=== PATIENT | male | born 1965 | race Caucasian/White ===

== ENCOUNTER → 2018-03-15 | Outpatient (CLI) | payer BC ==
[~2018-03-15] MED LIST: ACET325; CALCA500CH; CHOL10002; MULVITMIND; Percocet 5-3251 EACH PO; Protonix40 MG PO; Zofran Odt4 MG SL
[2018-03-15 09:52] LABS: BASOPHILS PERCENT AUTO 1 % (0-2); EOSINOPHILS ABSOLUTE AUTO 0.24 K/mm3 (0.00-0.68); EOSINOPHILS PERCENT AUTO 2 % (0-6); Hematocrit 47.6 % (37.0-53.0); Hemoglobin 16.5 g/dL (13.5-17.5); IMMATURE GRAN ABSOLUTE AUTO 0.05 K/mm3 (0.00-0.10); IMMATURE GRAN PERCENT AUTO 0 % (0-1); LYMPHOCYTES ABSOLUTE AUTO 3.62 K/mm3 (0.84-5.20); LYMPHOCYTES PERCENT AUTO 30 % (21-46); MONOCYTES ABSOLUTE AUTO 1.01 K/mm3 (0.16-1.47); MONOCYTES PERCENT AUTO 8 % (4-13); Mean Corpuscular HGB 30.7 pg (26.0-34.0); Mean Corpuscular HGB Conc 34.7 g/dL (31.5-36.5); Mean Corpuscular Volume 89 fL (80-100); Mean Platelet Volume 8.9 fL (9.1-12.4); NEUTROPHILS ABSOLUTE AUTO 7.16 K/mm3 (1.96-9.15); NEUTROPHILS PERCENT AUTO 59 % (41-73); Platelet Count 290 K/mm3 (150-400); RDW Coefficient Variation 13.5 % (11.7-14.2); RDW Standard Deviation 43.9 fL (35.1-46.3); Red Blood Cell Count 5.37 M/mm3 (4.30-5.90); White Blood Cell Count 12.18 K/mm3 (4.00-11.30)
[2018-03-15 10:13] LABS: Alanine Aminotransfer (ALT/SGP 20 U/L (12-78); Albumin, Blood 3.7 g/dL (3.4-5.0); Albumin/Globulin Ratio 1.1 (0.8-1.8); Alk Phos 92 U/L (40-126); Anion Gap 8 mmol/L (6-16); Aspartate Aminotrans (AST/SGOT 15 U/L (12-37); Bilirubin, Total 0.3 mg/dL (0.1-1.0); Blood Urea Nitrogen 12 mg/dL (8-24); Bun/Creatinine Ratio 14.5 (12.0-20.0); CO2, Blood 29 mmol/L (21-32); Calcium, Blood 8.8 mg/dL (8.5-10.1); Chloride, Blood 100 mmol/L (98-108); Creatinine, Blood 0.83 mg/dL (0.60-1.20); Globulin, Blood 3.5 g/dL (2.2-4.0); Glomerular Filtration Rate >60 (60-); Glucose, Blood 93 mg/dL (70-99); Potassium, Blood 3.9 mmol/L (3.5-5.5); Sodium, Blood 137 mmol/L (136-145); Total Protein, Blood 7.2 g/dL (6.4-8.2)
== END | disposition home or self-care (01) ==
LOC: LAB EV 09:48 → LAB SHORT 09:48
PROVIDERS: Physician Assistant
DX: R10.9 Unspecified abdominal pain (principal)
CPT/HCPCS: 80053; 83690; 85025; 87015; 87045; 87046; 87205; 87899

== ENCOUNTER 2018-07-11 13:06 | Emergency (ER) | payer BC, OTHER ==
[~2018-07-11] VITALS: Ht 167.6 cm; Wt 65.8 kg
[~2018-07-11 13:06] MED LIST changes: -PROM25 PR; -Zofran8 MG PO
[2018-07-11 16:11] LABS: BASOPHILS ABSOLUTE AUTO 0.07 K/mm3 (0.00-0.23); BASOPHILS PERCENT AUTO 0 % (0-2); EOSINOPHILS ABSOLUTE AUTO 0.11 K/mm3 (0.00-0.68); EOSINOPHILS PERCENT AUTO 0 % (0-6); Hematocrit 48.1 % (37.0-53.0); Hemoglobin 16.7 g/dL (13.5-17.5); IMMATURE GRAN ABSOLUTE AUTO 0.14 K/mm3 (0.00-0.10); IMMATURE GRAN PERCENT AUTO 1 % (0-1); LYMPHOCYTES ABSOLUTE AUTO 2.26 K/mm3 (0.84-5.20); LYMPHOCYTES PERCENT AUTO 9 % (21-46); MONOCYTES ABSOLUTE AUTO 2.08 K/mm3 (0.16-1.47); MONOCYTES PERCENT AUTO 8 % (4-13); Mean Corpuscular HGB 30.6 pg (26.0-34.0); Mean Corpuscular HGB Conc 34.7 g/dL (31.5-36.5); Mean Corpuscular Volume 88 fL (80-100); Mean Platelet Volume 9.3 fL (9.1-12.4); NEUTROPHILS ABSOLUTE AUTO 21.02 K/mm3 (1.96-9.15); NEUTROPHILS PERCENT AUTO 82 % (41-73); Platelet Count 259 K/mm3 (150-400); RDW Coefficient Variation 13.2 % (11.7-14.2); RDW Standard Deviation 42.5 fL (35.1-46.3); Red Blood Cell Count 5.45 M/mm3 (4.30-5.90); White Blood Cell Count 25.68 K/mm3 (4.00-11.30)
[2018-07-11 16:43] LABS: Alanine Aminotransfer (ALT/SGP 19 U/L (12-78); Albumin/Globulin Ratio 1.2 (0.8-1.8); Alk Phos 91 U/L (50-136); Anion Gap 4 mmol/L (6-16); Aspartate Aminotrans (AST/SGOT 11 U/L (12-37); Bilirubin, Total 0.5 mg/dL (0.1-1.0); Blood Urea Nitrogen 19 mg/dL (8-24); Bun/Creatinine Ratio 22.3 (12.0-20.0); CO2, Blood 34 mmol/L (21-32); Calcium, Blood 9.2 mg/dL (8.5-10.1); Chloride, Blood 99 mmol/L (98-108); Creatinine, Blood 0.85 mg/dL (0.60-1.20); Globulin, Blood 3.2 g/dL (2.2-4.0); Glomerular Filtration Rate >60 (60-); Glucose, Blood 106 mg/dL (70-99); Potassium, Blood 4.2 mmol/L (3.5-5.5); Sodium, Blood 137 mmol/L (136-145); Total Protein, Blood 7.2 g/dL (6.4-8.2)
[2018-07-11] MEDS ORDERED: PROM25 PR (19:52)
[2018-07-11] MEDS ORDERED: Zofran8 MG PO (19:52)
== END 2018-07-11 20:24 | disposition home or self-care (01) ==
LOC: ER 13:06
PROVIDERS: Emergency Medicine
DX: K52.9 Noninfective gastroenteritis and colitis, unspecified (principal); R74.8 Abnormal levels of other serum enzymes; F17.200 Nicotine dependence, unspecified, uncomplicated
CPT/HCPCS: 74177; 80053; 83690; 85025; 93005; 93010; 96361-59; 96374-59; 96375-59; 99284-25; A9270-GY; J0780; J1170; J2250; J2405; J7120; Q9967

== ENCOUNTER → 2018-07-11 | Outpatient (CLI) | payer BC ==
[~2018-07-11] MED LIST changes: +PROM25 PR; +Zofran8 MG PO
[2018-07-11 12:30] LABS: BASOPHILS ABSOLUTE AUTO 0.07 K/mm3 (0.00-0.23); BASOPHILS PERCENT AUTO 0 % (0-2); EOSINOPHILS ABSOLUTE AUTO 0.15 K/mm3 (0.00-0.68); EOSINOPHILS PERCENT AUTO 1 % (0-6); Hematocrit 47.3 % (37.0-53.0); Hemoglobin 17.1 g/dL (13.5-17.5); IMMATURE GRAN ABSOLUTE AUTO 0.08 K/mm3 (0.00-0.10); IMMATURE GRAN PERCENT AUTO 0 % (0-1); LYMPHOCYTES ABSOLUTE AUTO 2.64 K/mm3 (0.84-5.20); LYMPHOCYTES PERCENT AUTO 14 % (21-46); MONOCYTES ABSOLUTE AUTO 1.39 K/mm3 (0.16-1.47); MONOCYTES PERCENT AUTO 7 % (4-13); Mean Corpuscular HGB 30.9 pg (26.0-34.0); Mean Corpuscular HGB Conc 36.2 g/dL (31.5-36.5); Mean Corpuscular Volume 86 fL (80-100); Mean Platelet Volume 9.1 fL (9.1-12.4); NEUTROPHILS ABSOLUTE AUTO 14.68 K/mm3 (1.96-9.15); NEUTROPHILS PERCENT AUTO 77 % (41-73); Platelet Count 283 K/mm3 (150-400); RDW Standard Deviation 40.3 fL (35.1-46.3); Red Blood Cell Count 5.53 M/mm3 (4.30-5.90); White Blood Cell Count 19.01 K/mm3 (4.00-11.30)
[2018-07-11 12:42] LABS: Alanine Aminotransfer (ALT/SGP 21 U/L (12-78); Albumin, Blood 4.1 g/dL (3.4-5.0); Albumin/Globulin Ratio 1.1 (0.8-1.8); Alk Phos 96 U/L (40-126); Anion Gap 10 mmol/L (6-16); Aspartate Aminotrans (AST/SGOT 14 U/L (12-37); Bilirubin, Total 0.5 mg/dL (0.1-1.0); Blood Urea Nitrogen 18 mg/dL (8-24); Bun/Creatinine Ratio 22.2 (12.0-20.0); CO2, Blood 29 mmol/L (21-32); Calcium, Blood 9.6 mg/dL (8.5-10.1); Chloride, Blood 99 mmol/L (98-108); Creatinine, Blood 0.81 mg/dL (0.60-1.20); Globulin, Blood 3.6 g/dL (2.2-4.0); Glomerular Filtration Rate >60 (60-); Glucose, Blood 122 mg/dL (70-99); Potassium, Blood 3.8 mmol/L (3.5-5.5); Sodium, Blood 138 mmol/L (136-145); Total Protein, Blood 7.7 g/dL (6.4-8.2)
== END | disposition home or self-care (01) ==
LOC: LAB EV 12:24 → LAB SHORT 12:24
PROVIDERS: Physician Assistant
DX: R10.13 Epigastric pain (principal)
CPT/HCPCS: 80053; 83690; 85025

== ENCOUNTER 2018-07-12 09:53 | Inpatient (IN) | payer BC, OTHER ==
[~2018-07-12] VITALS: Ht 167.6 cm; Wt 57.6 kg
[~2018-07-12 09:53] MED LIST changes: +PROM25 PR; +Zofran8 MG PO
[2018-07-12 11:06] LABS: BASOPHILS ABSOLUTE AUTO 0.08 K/mm3 (0.00-0.23); BASOPHILS PERCENT AUTO 0 % (0-2); EOSINOPHILS ABSOLUTE AUTO 0.02 K/mm3 (0.00-0.68); EOSINOPHILS PERCENT AUTO 0 % (0-6); Hematocrit 51.7 % (37.0-53.0); IMMATURE GRAN ABSOLUTE AUTO 0.23 K/mm3 (0.00-0.10); IMMATURE GRAN PERCENT AUTO 1 % (0-1); LYMPHOCYTES ABSOLUTE AUTO 1.31 K/mm3 (0.84-5.20); LYMPHOCYTES PERCENT AUTO 4 % (21-46); MONOCYTES ABSOLUTE AUTO 1.93 K/mm3 (0.16-1.47); MONOCYTES PERCENT AUTO 6 % (4-13); Mean Corpuscular HGB Conc 34.8 g/dL (31.5-36.5); Mean Corpuscular Volume 89 fL (80-100); Mean Platelet Volume 9.6 fL (9.1-12.4); NEUTROPHILS PERCENT AUTO 88 % (41-73); Platelet Count 295 K/mm3 (150-400); RDW Coefficient Variation 13.3 % (11.7-14.2); RDW Standard Deviation 43.3 fL (35.1-46.3); White Blood Cell Count 29.97 K/mm3 (4.00-11.30)
[2018-07-12 11:30] LABS: Ethanol (Alcohol), Blood, Med <3 mg/dL
[2018-07-12 11:31] LABS: Alanine Aminotransfer (ALT/SGP 19 U/L (12-78); Albumin, Blood 3.9 g/dL (3.4-5.0); Albumin/Globulin Ratio 1.1 (0.8-1.8); Alk Phos 98 U/L (50-136); Anion Gap 8 mmol/L (6-16); Aspartate Aminotrans (AST/SGOT 10 U/L (12-37); Blood Urea Nitrogen 20 mg/dL (8-24); Bun/Creatinine Ratio 20.7 (12.0-20.0); CO2, Blood 28 mmol/L (21-32); Calcium, Blood 8.9 mg/dL (8.5-10.1); Chloride, Blood 103 mmol/L (98-108); Creatinine, Blood 0.97 mg/dL (0.60-1.20); Globulin, Blood 3.6 g/dL (2.2-4.0); Glomerular Filtration Rate >60 (60-); Glucose, Blood 152 mg/dL (70-99); Potassium, Blood 3.9 mmol/L (3.5-5.5); Sodium, Blood 139 mmol/L (136-145); Total Protein, Blood 7.5 g/dL (6.4-8.2)
--- NOTE | 2018-07-12 19:14 | NUR ---
SHIFT SUMMARY PT A&OX4, VSS. PAIN MANAGED WITH 0.5 DILAUDID. VOIDING WELL. AMB W/SBA TO BRP. GF AT BEDSIDE.
[2018-07-13 04:49] LABS: BASOPHILS ABSOLUTE AUTO 0.04 K/mm3 (0.00-0.23); BASOPHILS PERCENT AUTO 0 % (0-2); EOSINOPHILS ABSOLUTE AUTO 0.04 K/mm3 (0.00-0.68); EOSINOPHILS PERCENT AUTO 0 % (0-6); Hematocrit 41.1 % (37.0-53.0); Hemoglobin 14.2 g/dL (13.5-17.5); IMMATURE GRAN ABSOLUTE AUTO 0.11 K/mm3 (0.00-0.10); IMMATURE GRAN PERCENT AUTO 1 % (0-1); LYMPHOCYTES ABSOLUTE AUTO 2.02 K/mm3 (0.84-5.20); LYMPHOCYTES PERCENT AUTO 10 % (21-46); MONOCYTES ABSOLUTE AUTO 1.63 K/mm3 (0.16-1.47); MONOCYTES PERCENT AUTO 8 % (4-13); Mean Corpuscular HGB 31.3 pg (26.0-34.0); Mean Corpuscular HGB Conc 34.5 g/dL (31.5-36.5); Mean Corpuscular Volume 91 fL (80-100); Mean Platelet Volume 9.8 fL (9.1-12.4); NEUTROPHILS ABSOLUTE AUTO 17.37 K/mm3 (1.96-9.15); NEUTROPHILS PERCENT AUTO 82 % (41-73); Platelet Count 226 K/mm3 (150-400); RDW Coefficient Variation 13.4 % (11.7-14.2); RDW Standard Deviation 44.3 fL (35.1-46.3); Red Blood Cell Count 4.54 M/mm3 (4.30-5.90); White Blood Cell Count 21.21 K/mm3 (4.00-11.30)
[2018-07-13 05:11] LABS: Anion Gap 5 mmol/L (6-16); Blood Urea Nitrogen 19 mg/dL (8-24); Bun/Creatinine Ratio 24.3 (12.0-20.0); CO2, Blood 26 mmol/L (21-32); Calcium, Blood 8.1 mg/dL (8.5-10.1); Chloride, Blood 108 mmol/L (98-108); Creatinine, Blood 0.78 mg/dL (0.60-1.20); Glomerular Filtration Rate >60 (60-); Glucose, Blood 103 mg/dL (70-99); Potassium, Blood 4.6 mmol/L (3.5-5.5); Sodium, Blood 139 mmol/L (136-145)
--- NOTE | 2018-07-13 07:17 | NUR ---
SUMMARY: POD [address] HERR. VSS, AFEBRILE, GOOD TCDB EFFORT. BRIAN OUTPUT >100 ML. PT VOIDING CLEAR, YELLOW; NOT YET PASSING GAS. PAIN WELL CONTROLLED WITH 1MG IV DILAUDID X1 THIS SHIFT. PT AMBULATES HALLS AND TOLERATES WELL. MAINTAINS NPO STATUS.
--- NOTE | 2018-07-13 18:30 | NUR ---
SHIFT SUMMARY PT HAS AMBULATED x 4 DURING MY SHIFT, PAIN MANAGED TO PATIENT'S SATISFACTION, PASSING GAS, NPO.
[2018-07-14 05:11] LABS: BASOPHILS ABSOLUTE AUTO 0.07 K/mm3 (0.00-0.23); BASOPHILS PERCENT AUTO 1 % (0-2); EOSINOPHILS ABSOLUTE AUTO 0.41 K/mm3 (0.00-0.68); EOSINOPHILS PERCENT AUTO 3 % (0-6); Hematocrit 40.8 % (37.0-53.0); Hemoglobin 13.8 g/dL (13.5-17.5); IMMATURE GRAN ABSOLUTE AUTO 0.07 K/mm3 (0.00-0.10); IMMATURE GRAN PERCENT AUTO 1 % (0-1); LYMPHOCYTES ABSOLUTE AUTO 2.26 K/mm3 (0.84-5.20); LYMPHOCYTES PERCENT AUTO 15 % (21-46); MONOCYTES ABSOLUTE AUTO 1.66 K/mm3 (0.16-1.47); MONOCYTES PERCENT AUTO 11 % (4-13); Mean Corpuscular HGB 30.3 pg (26.0-34.0); Mean Corpuscular HGB Conc 33.8 g/dL (31.5-36.5); Mean Corpuscular Volume 90 fL (80-100); Mean Platelet Volume 9.9 fL (9.1-12.4); NEUTROPHILS ABSOLUTE AUTO 11.03 K/mm3 (1.96-9.15); NEUTROPHILS PERCENT AUTO 71 % (41-73); Platelet Count 216 K/mm3 (150-400); RDW Coefficient Variation 13.4 % (11.7-14.2); Red Blood Cell Count 4.56 M/mm3 (4.30-5.90)
--- NOTE | 2018-07-14 05:30 | NUR ---
SUMMARY: POD [address] HERR. VSS, AFEBRILE, ROOM AIR, MAINTAINS NPO STATUS. PT MOVING WELL IN ROOM AND BRP. PASSING MODERATE AMOUNT OF GAS, NO BM; VOIDING DARK YELLOW URINE. PAIN WELL CONTROLLED WITH 1MG IV DILAUDID X2 THIS SHIFT. CONTINUE TO ENCOURAGE AMBULATION AND OOB ACTIVITY WHILE IV PROTONIX AND FLUIDS INFUSE.
[2018-07-14 05:36] LABS: Anion Gap 7 mmol/L (6-16); Blood Urea Nitrogen 17 mg/dL (8-24); Bun/Creatinine Ratio 20.1 (12.0-20.0); CO2, Blood 27 mmol/L (21-32); Calcium, Blood 8.1 mg/dL (8.5-10.1); Chloride, Blood 105 mmol/L (98-108); Creatinine, Blood 0.85 mg/dL (0.60-1.20); Glomerular Filtration Rate >60 (60-); Glucose, Blood 78 mg/dL (70-99); Magnesium, Blood 2.2 mg/dL (1.6-2.4); Potassium, Blood 3.7 mmol/L (3.5-5.5); Sodium, Blood 139 mmol/L (136-145)
--- NOTE | 2018-07-14 07:12 | NUR ---
Patient gave permisson to view chart and give patient care.
--- NOTE | 2018-07-14 19:32 | NUR ---
SHIFT SUMMARY PT HAS DONE VERY WELL TODAY. PAIN MUCH IMPROVED. DENIES N/V. AMBULATING FREQUENTLY OUT TO SMOKE. DENIES PASSING GAS.
[2018-07-15 04:22] LABS: BASOPHILS ABSOLUTE AUTO 0.05 K/mm3 (0.00-0.23); BASOPHILS PERCENT AUTO 0 % (0-2); EOSINOPHILS ABSOLUTE AUTO 0.31 K/mm3 (0.00-0.68); EOSINOPHILS PERCENT AUTO 3 % (0-6); Hematocrit 38.4 % (37.0-53.0); Hemoglobin 13.5 g/dL (13.5-17.5); IMMATURE GRAN ABSOLUTE AUTO 0.05 K/mm3 (0.00-0.10); IMMATURE GRAN PERCENT AUTO 0 % (0-1); LYMPHOCYTES ABSOLUTE AUTO 2.16 K/mm3 (0.84-5.20); LYMPHOCYTES PERCENT AUTO 17 % (21-46); MONOCYTES ABSOLUTE AUTO 1.28 K/mm3 (0.16-1.47); MONOCYTES PERCENT AUTO 10 % (4-13); Mean Corpuscular HGB 31.2 pg (26.0-34.0); Mean Corpuscular HGB Conc 35.2 g/dL (31.5-36.5); Mean Corpuscular Volume 89 fL (80-100); Mean Platelet Volume 9.5 fL (9.1-12.4); NEUTROPHILS ABSOLUTE AUTO 8.73 K/mm3 (1.96-9.15); NEUTROPHILS PERCENT AUTO 69 % (41-73); Platelet Count 222 K/mm3 (150-400); RDW Coefficient Variation 12.9 % (11.7-14.2); RDW Standard Deviation 42.3 fL (35.1-46.3); Red Blood Cell Count 4.33 M/mm3 (4.30-5.90); White Blood Cell Count 12.58 K/mm3 (4.00-11.30)
--- NOTE | 2018-07-15 07:26 | NUR ---
SUMMARY PT AMBULATING INDEPENDANTLY IN HALLS AND ROOM TONIGHT. VOIDING. PLANS FOR UGI TODAY. PT REMAINS NPO AT THIS TIME.
--- NOTE | 2018-07-15 07:26 | NUR ---
PT REQ PAIN MEDS 1 MG IV DILAUDID GIVEN NO FLATUS BELCHING PT HAS BT'S SCHED FOR UPPER GI THIS AM TO SEE IF HE CAN START CL DIET PT DENIES ANY GERD SYMPTOMS STATED NO CURRNETLY ON PROTONIX GTT PT STATED HE HAS AMB IN HALLS
--- NOTE | 2018-07-15 10:51 | NUR ---
CLAUDIA TO ARIELA SL
--- NOTE | 2018-07-15 12:22 | NUR ---
PT BACK FROM XRAY REQ PAIN MEDS ALSO HAVING NAUSEA NO EMESIS
--- NOTE | 2018-07-15 14:39 | NUR ---
dr esquivel by to see pt
--- NOTE | 2018-07-15 18:46 | NUR ---
pt had 2 loose stool green in color called dietary left message will not be back untill am
[2018-07-16 05:55] LABS: BASOPHILS ABSOLUTE AUTO 0.05 K/mm3 (0.00-0.23); BASOPHILS PERCENT AUTO 1 % (0-2); EOSINOPHILS ABSOLUTE AUTO 0.49 K/mm3 (0.00-0.68); EOSINOPHILS PERCENT AUTO 5 % (0-6); Hematocrit 39.9 % (37.0-53.0); Hemoglobin 13.8 g/dL (13.5-17.5); IMMATURE GRAN ABSOLUTE AUTO 0.04 K/mm3 (0.00-0.10); IMMATURE GRAN PERCENT AUTO 0 % (0-1); LYMPHOCYTES ABSOLUTE AUTO 1.98 K/mm3 (0.84-5.20); LYMPHOCYTES PERCENT AUTO 19 % (21-46); MONOCYTES ABSOLUTE AUTO 1.23 K/mm3 (0.16-1.47); MONOCYTES PERCENT AUTO 12 % (4-13); Mean Corpuscular HGB 30.7 pg (26.0-34.0); Mean Corpuscular HGB Conc 34.6 g/dL (31.5-36.5); Mean Corpuscular Volume 89 fL (80-100); Mean Platelet Volume 9.3 fL (9.1-12.4); NEUTROPHILS ABSOLUTE AUTO 6.91 K/mm3 (1.96-9.15); NEUTROPHILS PERCENT AUTO 65 % (41-73); Platelet Count 240 K/mm3 (150-400); RDW Standard Deviation 42.9 fL (35.1-46.3)
--- NOTE | 2018-07-16 06:08 | NUR ---
SUMMARY NO ACUTE CHANGES TONIGHT. PT WAITING REPEAT UGI TODAY AND POTENTIAL IV NUTRITION DISCUSSSED WITH DOCTOR YESTERDAY PER REPORT OF DAY RN AND PT.
[2018-07-16 06:10] LABS: Anion Gap 9 mmol/L (6-16); Blood Urea Nitrogen 14 mg/dL (8-24); CO2, Blood 27 mmol/L (21-32); Calcium, Blood 8.2 mg/dL (8.5-10.1); Chloride, Blood 104 mmol/L (98-108); Creatinine, Blood 0.78 mg/dL (0.60-1.20); Glomerular Filtration Rate >60 (60-); Glucose, Blood 84 mg/dL (70-99); Potassium, Blood 3.5 mmol/L (3.5-5.5); Sodium, Blood 140 mmol/L (136-145)
--- NOTE | 2018-07-16 07:05 | NUR ---
recvd report from previous rn lolly, pt a/o x 4, up in room, call light within reach, bed in lowest position, bed rails up x 2
--- NOTE | 2018-07-16 10:48 | NUR ---
car packer to consult with pt. pt will start TPN per mar
--- NOTE | 2018-07-16 18:34 | NUR ---
imaging results called to dr sequivel, orders for clear liquid diet. pt requests no power glide to be started, that he would rather try the clear liquid diet than TPN. will pass on in report.
--- NOTE | 2018-07-16 19:36 | NUR ---
SHIFT SUMMARY: VSS, NO ACUTE CHANGES, PT REMAINED A/O X 4, PLEASANT/COOPERATIVE. PT AMBULATED MULTIPLE TIMES OUTSIDE TODAY. WEIGHED PT TODAY, SAME WEIGHT YESTERDAY. PT AND STATE HE IS CONCERNED REGARDING THE WEIGHT THAT HE HAS LOST, NUTRITION CONSULT PROVIDED, BEGAN CLINIMIX THIS SHIFT. PT WITH MULTIPLE VOIDS THIS SHIFT, UNMEASURED. FOLLOWING UPPER GI FOLLOWTHROUGH, PT ABLE TO COMMENCE CLEAR LIQUID DIET, TOLERATED WELL. PT VERY HAPPY FOR THIS. PERIPHERAL IV INFILTRATED, AWAITING ULTRASOUND ASSISTED POWER GLIDE WITH [employer] BRIAN DRAINING SERSANGUINOUS CLEAR LIQUID, EMPTIED 40 THIS SHIFT. NO N/V. PAIN CONTROLLED PER APR
[2018-07-17 05:08] LABS: Anion Gap 5 mmol/L (6-16); Blood Urea Nitrogen 10 mg/dL (8-24); Bun/Creatinine Ratio 14.8 (12.0-20.0); CO2, Blood 28 mmol/L (21-32); Calcium, Blood 8.1 mg/dL (8.5-10.1); Chloride, Blood 105 mmol/L (98-108); Creatinine, Blood 0.67 mg/dL (0.60-1.20); Glomerular Filtration Rate >60 (60-); Glucose, Blood 83 mg/dL (70-99); Magnesium, Blood 2.1 mg/dL (1.6-2.4); Phosphorus, Blood 2.2 mg/dL (2.5-4.9); Potassium, Blood 3.4 mmol/L (3.5-5.5); Sodium, Blood 138 mmol/L (136-145); Triglycerides 160 mg/dL (30-160)
[2018-07-17 05:25] LABS: BASOPHILS ABSOLUTE AUTO 0.05 K/mm3 (0.00-0.23); BASOPHILS PERCENT AUTO 0 % (0-2); EOSINOPHILS ABSOLUTE AUTO 0.58 K/mm3 (0.00-0.68); EOSINOPHILS PERCENT AUTO 5 % (0-6); Hemoglobin 13.8 g/dL (13.5-17.5); IMMATURE GRAN ABSOLUTE AUTO 0.09 K/mm3 (0.00-0.10); IMMATURE GRAN PERCENT AUTO 1 % (0-1); LYMPHOCYTES ABSOLUTE AUTO 2.34 K/mm3 (0.84-5.20); LYMPHOCYTES PERCENT AUTO 18 % (21-46); MONOCYTES ABSOLUTE AUTO 1.55 K/mm3 (0.16-1.47); MONOCYTES PERCENT AUTO 12 % (4-13); Mean Corpuscular HGB 30.7 pg (26.0-34.0); Mean Corpuscular HGB Conc 34.5 g/dL (31.5-36.5); Mean Corpuscular Volume 89 fL (80-100); Mean Platelet Volume 9.4 fL (9.1-12.4); NEUTROPHILS ABSOLUTE AUTO 8.14 K/mm3 (1.96-9.15); NEUTROPHILS PERCENT AUTO 64 % (41-73); Platelet Count 276 K/mm3 (150-400); RDW Coefficient Variation 12.9 % (11.7-14.2); RDW Standard Deviation 42.4 fL (35.1-46.3); White Blood Cell Count 12.75 K/mm3 (4.00-11.30)
--- NOTE | 2018-07-17 05:35 | NUR ---
SHIFT SUMMARY PT POD#5 EXP LAP WITH PATCH. AAOX4. DISCOMFORT CONTROLLED WITH 1MG IV DILAUDID X1. NO NAUSEA/EMESIS. ABD INCISION WITH ZION OPEN TO AIR + BRIAN SECURE WITH SMALL AMOUNT SS DRAINAGE. INDEPENDENT IN ROOM. TOLERATED CLEAR LIQUIDS WELL T/O NIGHT. GOOD OUTPUT. NEW MIDLINE IV ACCESS OBTAINED. WILL CONTINUE TO MONITOR INTAKE + START IVF PRN. PT OUT TO SMOKE FREQUENTLY, CESSATION ENCOURAGED. CALL LIGHT IN REACH + PT USES FOR ASSISTANCE.
[2018-07-17 05:47] LABS: Alanine Aminotransfer (ALT/SGP 14 U/L (12-78); Albumin, Blood 2.7 g/dL (3.4-5.0); Albumin/Globulin Ratio 0.8 (0.8-1.8); Alk Phos 58 U/L (50-136); Anion Gap 8 mmol/L (6-16); Aspartate Aminotrans (AST/SGOT 17 U/L (12-37); Bilirubin, Total 0.7 mg/dL (0.1-1.0); Blood Urea Nitrogen 11 mg/dL (8-24); Bun/Creatinine Ratio 16.4 (12.0-20.0); CO2, Blood 27 mmol/L (21-32); Calcium, Blood 8.1 mg/dL (8.5-10.1); Chloride, Blood 104 mmol/L (98-108); Creatinine, Blood 0.67 mg/dL (0.60-1.20); Globulin, Blood 3.3 g/dL (2.2-4.0); Glomerular Filtration Rate >60 (60-); Glucose, Blood 83 mg/dL (70-99); Potassium, Blood 3.4 mmol/L (3.5-5.5); Sodium, Blood 139 mmol/L (136-145)
--- NOTE | 2018-07-18 05:13 | NUR ---
SHIFT SUMMARY POD#6 EXP LAP WITH DUODENAL ULCER REPAIR. PT RESTED WELL T/O SHIFT. AAOX4. DISCOMFORT CONTROLLED WITH 2 PAIN PILLS. NO NAUSEA/EMESIS. ABD INCISION WITH ZION OPEN TO AIR, NO DRAINAGE. BRIAN SECURE WITH 30cc SS DRAINAGE OUT THIS SHIFT. INDEPENDENT IN ROOM. GOOD PO INTAKE + OUTPUT. CALL LIGHT IN REACH + PT USES FOR ASSISTANCE.
[2018-07-18 05:26] LABS: Anion Gap 5 mmol/L (6-16); Blood Urea Nitrogen 11 mg/dL (8-24); Bun/Creatinine Ratio 15.8 (12.0-20.0); CO2, Blood 29 mmol/L (21-32); Calcium, Blood 8.1 mg/dL (8.5-10.1); Chloride, Blood 106 mmol/L (98-108); Glomerular Filtration Rate >60 (60-); Glucose, Blood 127 mg/dL (70-99); Phosphorus, Blood 2.5 mg/dL (2.5-4.9); Potassium, Blood 3.5 mmol/L (3.5-5.5); Sodium, Blood 140 mmol/L (136-145)
[2018-07-18] MEDS ORDERED: Norco 5-325 Ta1 EACH PO (08:56)
[2018-07-18] MEDS ORDERED: OMEPRAZOLE MAGN20 MG PO (08:57)
[2018-07-18] MEDS ORDERED: CLAR500 PO (08:58)
[2018-07-18] MEDS ORDERED: Amoxicillin500 M1 PO (08:58)
--- NOTE | 2018-07-18 14:17 | NUR ---
SUMMARY PT D/C TO HOME. DRSG'S C/D/I, D/C RX & INSTRUCTIONS GIVEN. PT ENC TO F/U [facility] FOR ANY PROBLEMS OR CONCERNS.
== END 2018-07-18 14:15 | disposition home or self-care (01) | DRG 853 ==
LOC: ER 09:53 → SURS 13:26
PROVIDERS: Emergency Medicine; ADMIT Surgery
PROC: 0DU947Z Supplement Duodenum with Autologous Tissue Substitute, Percutaneous Endoscopic Approach (ICD-10-PCS; principal; 2018-07-12 14:45)
DX: A41.9 Sepsis, unspecified organism (principal); K26.5 Chronic or unspecified duodenal ulcer with perforation; F17.210 Nicotine dependence, cigarettes, uncomplicated
CPT/HCPCS: 36415; 74018; 74176; 74177; 74240; 80048; 80053; 82947; 83690; 83735; 84100; 84478; 85025; 87338; 88302; 93005; 93010; 96361-59; 96374-59; 96375-59; 99284-25; 99285-25; A9270-GY; C1751; C9113; G0480; J0692; J0780; J1100; J1170; J1650; J1885; J2250; J2405; J2543; J2550; J2704; J2710; J3010; J7030; J7120; Q9967

== ENCOUNTER 2018-10-19 07:24 | Day surgery (SDC) | payer BC, OTHER ==
[~2018-10-19] VITALS: Ht 167.6 cm; Wt 66.5 kg
[~2018-10-19 07:24] MED LIST changes: +Amoxicillin500 M1 PO; +CLAR500 PO; +Norco 5-325 Ta1 EACH PO; +OMEPRAZOLE MAGN20 MG PO
== END 2018-10-19 09:36 | disposition home or self-care (01) ==
LOC: ORSCSDS 07:24
PROVIDERS: Surgery
PROC: 0DB68ZX Excision of Stomach, Via Natural or Artificial Opening Endoscopic, Diagnostic (ICD-10-PCS; principal; 2018-10-19 08:45)
PROC: 0DB98ZX Excision of Duodenum, Via Natural or Artificial Opening Endoscopic, Diagnostic (ICD-10-PCS; principal; 2018-10-19 08:45)
DX: Z87.11 Personal history of peptic ulcer disease (principal); B96.81 Helicobacter pylori [H. pylori] as the cause of diseases classified elsewhere; F32.9 Major depressive disorder, single episode, unspecified; F17.210 Nicotine dependence, cigarettes, uncomplicated; Z79.899 Other long term (current) drug therapy
CPT/HCPCS: 88305; 88342; J2704; J7120

== ENCOUNTER → 2024-08-10 | Outpatient (CLI) | payer BC ==
[~2024-08-10] MED LIST changes: +AMOCLA875 PO; +METR500 PO; +MIRALAX17 GM PO; +OXYC5 PO; +VISBIOME 112.51 EACH PO
[2024-08-10 18:53] LABS: BASOPHILS ABSOLUTE AUTO 0.12 K/mm3 (0.00-0.23); BASOPHILS PERCENT AUTO 1 % (0-2); EOSINOPHILS ABSOLUTE AUTO 0.35 K/mm3 (0.00-0.68); EOSINOPHILS PERCENT AUTO 2 % (0-6); Hematocrit 44.8 % (37.0-53.0); Hemoglobin 15.8 g/dL (13.5-17.5); IMMATURE GRAN ABSOLUTE AUTO 0.25 K/mm3 (0.00-0.10); IMMATURE GRAN PERCENT AUTO 2 % (0-1); LYMPHOCYTES ABSOLUTE AUTO 3.14 K/mm3 (0.84-5.20); LYMPHOCYTES PERCENT AUTO 21 % (21-46); MONOCYTES ABSOLUTE AUTO 1.46 K/mm3 (0.16-1.47); MONOCYTES PERCENT AUTO 10 % (4-13); Mean Corpuscular HGB Conc 35.3 g/dL (31.5-36.5); Mean Corpuscular Volume 86 fL (80-100); NEUTROPHILS ABSOLUTE AUTO 9.89 K/mm3 (1.96-9.15); NEUTROPHILS PERCENT AUTO 65 % (41-73); NRBC ABSOLUTE 0.00 K/mm3 (0.00-0.02); NRBC Auto 0.0 /100 WBC (0.0-0.2); Platelet Count 292 K/mm3 (150-400); RDW Coefficient Variation 13.3 % (11.7-14.2); RDW Standard Deviation 41.9 fL (35.1-46.3)
[2024-08-10 19:20] LABS: Alanine Aminotransfer (ALT/SGP 104.0 U/L (12-78); Albumin, Blood 3.8 g/dL (3.4-5.0); Albumin/Globulin Ratio 1.0 (0.8-1.8); Anion Gap 8.0 mmol/L (3-11); Aspartate Aminotrans (AST/SGOT 80.0 U/L (12-37); Bilirubin, Total 0.5 mg/dL (0.1-1.0); Blood Urea Nitrogen 12.0 mg/dL (8-24); CO2, Blood 27.0 mmol/L (21-32); Calcium, Blood 8.6 mg/dL (8.5-10.1); Chloride, Blood 104.0 mmol/L (98-108); Creatinine, Blood 0.67 mg/dL (0.60-1.20); Ferritin, Serum 758.0 ng/mL (26-388); Globulin, Blood 4.0 g/dL (2.2-4.0); Glucose, Blood 84.0 mg/dL (70-99); Potassium, Blood 3.8 mmol/L (3.5-5.5); Sodium, Blood 135.0 mmol/L (136-145); Total Iron Binding Capacity 283.0 ug/dL (250-450); Total Protein, Blood 7.8 g/dL (6.4-8.2)
== END ==
LOC: LAB SHORT 17:48
PROVIDERS: Internal Medicine Hematology & Oncology
DX: C34.90 Malignant neoplasm of unspecified part of unspecified bronchus or lung (principal)
CPT/HCPCS: 80053; 82378; 82728; 83540; 83550; 85025

== ENCOUNTER 2024-09-26 17:36 | Inpatient (IN) | payer BC ==
[~2024-09-26] VITALS: Ht 167.6 cm; Wt 69.8 kg
[2024-09-26] MEDS ORDERED: ONDA4 PO (18:03)
[2024-09-26] MEDS ORDERED: DEXA4 PO (18:04)
[2024-09-26] MEDS ORDERED: Abraxane100 MG IV (18:06)
[2024-09-26] MEDS ORDERED: KEYTRUDA100 MG/41 IV (18:06)
[2024-09-26] MEDS ORDERED: Ketorolac Tromethamine 30mg Vial IV ONE (18:15)
[2024-09-26] MEDS ORDERED: HYDROmorphone HCl/Pf 1MG SYR IV ONE (18:15)
[2024-09-26] MEDS ORDERED: NS 1,000 ML IV SCH (18:15)
[2024-09-26] MEDS ORDERED: Ondansetron HCl 2 MG / ML 2ML Vial IV ONE (18:15)
[2024-09-26] MEDS ORDERED: CefTRIAXone Sodium 1,000 MG in NS 50 ML IV ONE (18:15)
[2024-09-26 18:47] LABS: BASOPHILS ABSOLUTE AUTO 0.08 K/mm3 (0.00-0.23); BASOPHILS PERCENT AUTO 1 % (0-2); EOSINOPHILS ABSOLUTE AUTO 0.09 K/mm3 (0.00-0.68); EOSINOPHILS PERCENT AUTO 1 % (0-6); Hematocrit 39.0 % (37.0-53.0); Hemoglobin 13.8 g/dL (13.5-17.5); IMMATURE GRAN ABSOLUTE AUTO 0.20 K/mm3 (0.00-0.10); IMMATURE GRAN PERCENT AUTO 1 % (0-1); LYMPHOCYTES ABSOLUTE AUTO 1.88 K/mm3 (0.84-5.20); LYMPHOCYTES PERCENT AUTO 11 % (21-46); MONOCYTES ABSOLUTE AUTO 1.23 K/mm3 (0.16-1.47); MONOCYTES PERCENT AUTO 7 % (4-13); Mean Corpuscular HGB Conc 35.4 g/dL (31.5-36.5); Mean Corpuscular Volume 85 fL (80-100); NEUTROPHILS ABSOLUTE AUTO 13.14 K/mm3 (1.96-9.15); NEUTROPHILS PERCENT AUTO 79 % (41-73); NRBC ABSOLUTE 0.00 K/mm3 (0.00-0.02); NRBC Auto 0.0 /100 WBC (0.0-0.2); Platelet Count 258 K/mm3 (150-400); RDW Coefficient Variation 15.9 % (11.7-14.2); RDW Standard Deviation 48.6 fL (35.1-46.3)
[2024-09-26 19:17] LABS: Influenza A, PCR NEGATIVE (NEGATIVE); Influenza B, PCR NEGATIVE (NEGATIVE); Resp Syncytial Virus, PCR NEGATIVE (NEGATIVE); SARS-Cov-2 (COVID-19) PCR, MMC NEGATIVE (NEGATIVE)
[2024-09-26 19:21] LABS: Source, Urine Clean Catch
[2024-09-26 19:29] LABS: Bilirubin, Urine Neg (Neg); Color, Urine Yellow (P-Yellow); Glucose Qualitative, Urine Neg (Neg); Ketones, Urine Neg (Neg); Leukocyte Esterase, Urine 1+ (Neg); Protein, Urine Neg (Neg); Specific Gravity, Urine 1.010 (1.003-1.022); Urobilinogen, Urine NORM (Normal)
[2024-09-26 19:34] LABS: Alanine Aminotransfer (ALT/SGP 74.0 U/L (12-78); Albumin, Blood 3.7 g/dL (3.4-5.0); Albumin/Globulin Ratio 1.2 (0.8-1.8); Anion Gap 8.0 mmol/L (3-11); Aspartate Aminotrans (AST/SGOT 41.0 U/L (12-37); Bilirubin, Total 0.5 mg/dL (0.1-1.0); Blood Urea Nitrogen 14.0 mg/dL (8-24); CO2, Blood 27.0 mmol/L (21-32); Calcium, Blood 8.8 mg/dL (8.5-10.1); Chloride, Blood 102.0 mmol/L (98-108); Creatinine, Blood 0.74 mg/dL (0.60-1.20); Globulin, Blood 3.1 g/dL (2.2-4.0); Glucose, Blood 125.0 mg/dL (70-99); Potassium, Blood 3.4 mmol/L (3.5-5.5); Sodium, Blood 134.0 mmol/L (136-145); Total Protein, Blood 6.8 g/dL (6.4-8.2)
[2024-09-26 19:40] LABS: Red Blood Cells, Urine 0-2 /hpf (0-2)
[2024-09-26] MEDS ORDERED: Vancomycin (Pharmacy Consult) IV SCH (21:50)
[2024-09-26] MEDS ORDERED: Piperacillin/Tazobactam Sod 4.5 GM in NS 100 ML IV ONE (22:00)
[2024-09-26] MEDS ORDERED: Polyethylene Glycol 3350 17 gm PO PRN (22:25)
[2024-09-27] MEDS ORDERED: NS 1,000 ML IV SCH (01:00)
[2024-09-27] MEDS ORDERED: Piperacillin/Tazobactam Sod 4.5 GM in NS 100 ML IV SCH (06:00)
[2024-09-27] MEDS ORDERED: Potassium Chl 20MEQ/Water100ML 100 ML IV STA (06:59)
[2024-09-27 09:00] VITALS: BP 104/65
[2024-09-27] MEDS ORDERED: Enoxaparin 40 MG/0.4 ML SYR SC SCH (09:00)
[2024-09-27] MEDS ORDERED: Lactobacil 2-S.Thermo-Bifido 1 1 Cap PO SCH (09:00)
[2024-09-27] MEDS ORDERED: Carboplati10 MG/1 ML (09:09)
[2024-09-27] MEDS ORDERED: CANNABIS (09:11)
[2024-09-27 09:58] LABS: BASOPHILS ABSOLUTE AUTO 0.06 K/mm3 (0.00-0.23); BASOPHILS PERCENT AUTO 0 % (0-2); EOSINOPHILS ABSOLUTE AUTO 0.05 K/mm3 (0.00-0.68); EOSINOPHILS PERCENT AUTO 0 % (0-6); Hematocrit 32.3 % (37.0-53.0); Hemoglobin 11.3 g/dL (13.5-17.5); IMMATURE GRAN ABSOLUTE AUTO 0.22 K/mm3 (0.00-0.10); IMMATURE GRAN PERCENT AUTO 1 % (0-1); LYMPHOCYTES ABSOLUTE AUTO 1.90 K/mm3 (0.84-5.20); LYMPHOCYTES PERCENT AUTO 8 % (21-46); MONOCYTES ABSOLUTE AUTO 3.13 K/mm3 (0.16-1.47); MONOCYTES PERCENT AUTO 14 % (4-13); Mean Corpuscular HGB Conc 35.0 g/dL (31.5-36.5); Mean Corpuscular Volume 86 fL (80-100); NEUTROPHILS ABSOLUTE AUTO 17.31 K/mm3 (1.96-9.15); NEUTROPHILS PERCENT AUTO 76 % (41-73); NRBC ABSOLUTE 0.00 K/mm3 (0.00-0.02); NRBC Auto 0.0 /100 WBC (0.0-0.2); Platelet Count 191 K/mm3 (150-400); RDW Coefficient Variation 15.9 % (11.7-14.2); RDW Standard Deviation 49.9 fL (35.1-46.3)
[2024-09-27 10:28] LABS: Alanine Aminotransfer (ALT/SGP 51.0 U/L (12-78); Albumin, Blood 2.6 g/dL (3.4-5.0); Albumin/Globulin Ratio 0.8 (0.8-1.8); Anion Gap 12.0 mmol/L (3-11); Aspartate Aminotrans (AST/SGOT 32.0 U/L (12-37); Bilirubin, Total 0.9 mg/dL (0.1-1.0); Blood Urea Nitrogen 13.0 mg/dL (8-24); CO2, Blood 24.0 mmol/L (21-32); Calcium, Blood 7.6 mg/dL (8.5-10.1); Chloride, Blood 103.0 mmol/L (98-108); Creatinine, Blood 0.83 mg/dL (0.60-1.20); Globulin, Blood 3.1 g/dL (2.2-4.0); Glucose, Blood 108.0 mg/dL (70-99); Potassium, Blood 3.5 mmol/L (3.5-5.5); Sodium, Blood 135.0 mmol/L (136-145); Total Protein, Blood 5.7 g/dL (6.4-8.2)
--- NOTE | 2024-09-27 11:24 | NUR ---
UA and respiratory panel sent, pt went down for chest xray.
--- NOTE | 2024-09-27 11:25 | NUR ---
Vancomycin infusing. Pt is drinking fluids, encouraged him to continue.
[2024-09-27 12:33] VITALS: BP 98/67
--- NOTE | 2024-09-27 12:36 | NUR ---
liver drain valve cleansed with chlorihexidine, rinsed with sterile saline. Some fluid was evacuated before the fluid specimen was collected. Specimen cloudy yellow with strong foul odor. Pt states he has been able to smell it even when the bag is closed. Specimen sent to lab per orders.
--- NOTE | 2024-09-27 15:42 | NUR ---
requesting pain medication and miralax at this time.
[2024-09-27 16:00] VITALS: BP 99/62
--- NOTE | 2024-09-27 16:03 | NUR ---
Given miralax with oxycodone at this time per his request.
--- NOTE | 2024-09-27 17:29 | NUR ---
Pt reports that his abdominal pain is well controlled after a dose of oxycodone. He is sitting up eating dinner. IV site on left hand remains WNL, while infusing zosyn at 25 cc/hour concurrently with NS at 100 cc/hour.
[2024-09-27 20:00] VITALS: BP 100/64
[2024-09-27 22:55] VITALS: BP 108/69
[2024-09-28 04:45] VITALS: BP 107/73
[2024-09-28 06:25] LABS: BASOPHILS ABSOLUTE AUTO 0.06 K/mm3 (0.00-0.23); BASOPHILS PERCENT AUTO 0 % (0-2); EOSINOPHILS ABSOLUTE AUTO 0.22 K/mm3 (0.00-0.68); EOSINOPHILS PERCENT AUTO 1 % (0-6); Hematocrit 34.1 % (37.0-53.0); Hemoglobin 11.7 g/dL (13.5-17.5); IMMATURE GRAN ABSOLUTE AUTO 0.12 K/mm3 (0.00-0.10); IMMATURE GRAN PERCENT AUTO 1 % (0-1); LYMPHOCYTES ABSOLUTE AUTO 2.40 K/mm3 (0.84-5.20); LYMPHOCYTES PERCENT AUTO 16 % (21-46); MONOCYTES ABSOLUTE AUTO 1.69 K/mm3 (0.16-1.47); MONOCYTES PERCENT AUTO 11 % (4-13); Mean Corpuscular HGB Conc 34.3 g/dL (31.5-36.5); Mean Corpuscular Volume 88 fL (80-100); NEUTROPHILS ABSOLUTE AUTO 10.99 K/mm3 (1.96-9.15); NEUTROPHILS PERCENT AUTO 71 % (41-73); NRBC ABSOLUTE 0.00 K/mm3 (0.00-0.02); NRBC Auto 0.0 /100 WBC (0.0-0.2); Platelet Count 190 K/mm3 (150-400); RDW Coefficient Variation 15.8 % (11.7-14.2); RDW Standard Deviation 51.2 fL (35.1-46.3)
--- NOTE | 2024-09-28 06:28 | NUR ---
SHIFT SUMMARY: PT A&OX4, PLEASANT AND COOPERATIVE WITH CARE. VSS ON RA. SR IN THE 70'S. C/O PAIN IN HIS ABD, MEDICATED WITH PRN 5 MG ROXICODONE. LUQ BILIARY DRAIN WITH YELLOW OUTPUT. PT TOLERATING A REGULAR DIET. PT UP AD RUY INDEPENDENTLY IN ROOM/BR. VOIDING LARGE AMOUNTS OF CLEAR, PALE URINE. NO BM THIS SHIFT. BED IN LOWEST POSITION, CALL LIGHT WITHIN REACH. CALLS APPROPRIATELY AND IS ABLE TO ADVOCATE NEEDS EFFECTIVELY.
[2024-09-28 06:50] LABS: Alanine Aminotransfer (ALT/SGP 50.0 U/L (12-78); Albumin, Blood 2.7 g/dL (3.4-5.0); Albumin/Globulin Ratio 0.9 (0.8-1.8); Anion Gap 8.0 mmol/L (3-11); Aspartate Aminotrans (AST/SGOT 35.0 U/L (12-37); Bilirubin, Total 0.8 mg/dL (0.1-1.0); Blood Urea Nitrogen 9.0 mg/dL (8-24); CO2, Blood 26.0 mmol/L (21-32); Calcium, Blood 8.0 mg/dL (8.5-10.1); Chloride, Blood 109.0 mmol/L (98-108); Creatinine, Blood 0.85 mg/dL (0.60-1.20); Globulin, Blood 3.0 g/dL (2.2-4.0); Glucose, Blood 107.0 mg/dL (70-99); Potassium, Blood 3.6 mmol/L (3.5-5.5); Sodium, Blood 139.0 mmol/L (136-145); Total Protein, Blood 5.7 g/dL (6.4-8.2)
[2024-09-28 07:40] VITALS: BP 125/73
[2024-09-28] MEDS ORDERED: Piperacillin/Tazobactam Sod 4.5 GM in NS 100 ML IV SCH ×2 (08:00→20:00)
--- NOTE | 2024-09-28 10:20 | NUR ---
Pt finished showering, says felt good. Pain 4/10 after the oxycodone earlier. IV on the left hand dressing was loose, so dressing was changed.
[2024-09-28 11:09] LABS: Vancomycin, Trough 9.8 ug/mL (5.0-10.0)
--- NOTE | 2024-09-28 11:19 | NUR ---
Dressing for the liver drain was removed by the patient after his shower; the area was shaved with electric razor, adhesive remover applied to make application of new dressing better. Area was cleansed with chloroprep and after it dried, new CHG dressing was applied using aseptic technique. pt tolerated it very well. New drainage bag was attached and secured.
--- NOTE | 2024-09-28 14:44 | NUR ---
NURSE NOTE: RIGHT FOREARM IV OCCLUDED, VEIN IS HARD AND TENDER TO LIGHT PALPATION. MD OG NOTIFIED AND CAME TO BEDSIDE AT 0481
--- NOTE | 2024-09-28 16:50 | NUR ---
New IV started on the right forearm to accomodate frequent multiple IV antibiotics and fluids.
[2024-09-28 17:00] VITALS: BP 149/84
[2024-09-28 19:59] VITALS: BP 126/80
[2024-09-29] MEDS ORDERED: NS 250 ML IV PRN (00:10)
[2024-09-29 02:57] VITALS: BP 115/79
[2024-09-29] MEDS ORDERED: Piperacillin/Tazobactam Sod 4.5 GM in NS 100 ML IV SCH (04:00)
--- NOTE | 2024-09-29 04:35 | NUR ---
SHIFT SUMMARY 59 YR M TRANSFERED TO MEDICAL FLOOR FROM PCU THIS SHIFT. FULL CODE. NO ACUTE CHANGES THIS SHIFT. PT IR RECEIVING IV ABX AT REGULAR INTERVALS. MEDICATED FOR PAIN PER EMAR. PT IS A&O X 4 AND INDEPENDANT IN THE ROOM. VSS. ABLE TO MAKE HIS NEEDS KNOWN. NO NEW CHANGES TO REPORT. BED IN LOW POSITION AND CALL LIGHT IN REACH.
[2024-09-29 04:44] LABS: BASOPHILS ABSOLUTE AUTO 0.06 K/mm3 (0.00-0.23); BASOPHILS PERCENT AUTO 1 % (0-2); EOSINOPHILS ABSOLUTE AUTO 0.27 K/mm3 (0.00-0.68); EOSINOPHILS PERCENT AUTO 3 % (0-6); Hematocrit 33.9 % (37.0-53.0); Hemoglobin 11.8 g/dL (13.5-17.5); IMMATURE GRAN ABSOLUTE AUTO 0.13 K/mm3 (0.00-0.10); IMMATURE GRAN PERCENT AUTO 1 % (0-1); LYMPHOCYTES ABSOLUTE AUTO 2.21 K/mm3 (0.84-5.20); LYMPHOCYTES PERCENT AUTO 23 % (21-46); MONOCYTES ABSOLUTE AUTO 1.24 K/mm3 (0.16-1.47); MONOCYTES PERCENT AUTO 13 % (4-13); Mean Corpuscular HGB Conc 34.8 g/dL (31.5-36.5); Mean Corpuscular Volume 87 fL (80-100); NEUTROPHILS ABSOLUTE AUTO 5.78 K/mm3 (1.96-9.15); NEUTROPHILS PERCENT AUTO 60 % (41-73); NRBC ABSOLUTE 0.00 K/mm3 (0.00-0.02); NRBC Auto 0.0 /100 WBC (0.0-0.2); Platelet Count 192 K/mm3 (150-400); RDW Coefficient Variation 15.5 % (11.7-14.2); RDW Standard Deviation 49.0 fL (35.1-46.3)
[2024-09-29 05:16] LABS: Alanine Aminotransfer (ALT/SGP 45.0 U/L (12-78); Albumin, Blood 2.8 g/dL (3.4-5.0); Albumin/Globulin Ratio 0.8 (0.8-1.8); Anion Gap 10.0 mmol/L (3-11); Aspartate Aminotrans (AST/SGOT 32.0 U/L (12-37); Bilirubin, Total 0.5 mg/dL (0.1-1.0); Blood Urea Nitrogen 9.0 mg/dL (8-24); CO2, Blood 26.0 mmol/L (21-32); Calcium, Blood 8.3 mg/dL (8.5-10.1); Chloride, Blood 109.0 mmol/L (98-108); Creatinine, Blood 0.89 mg/dL (0.60-1.20); Globulin, Blood 3.4 g/dL (2.2-4.0); Glucose, Blood 92.0 mg/dL (70-99); Potassium, Blood 3.8 mmol/L (3.5-5.5); Sodium, Blood 141.0 mmol/L (136-145); Total Protein, Blood 6.2 g/dL (6.4-8.2)
[2024-09-29 07:33] VITALS: BP 129/81
[2024-09-29] MEDS ORDERED: VISBIOME 112.51 EACH PO (12:59)
[2024-09-29] MEDS ORDERED: CIPR500 PO (12:59)
[2024-09-29] MEDS ORDERED: METR500 PO (13:00)
--- NOTE | 2024-09-29 14:03 | NUR ---
DISCHARGE REVIEWED DISCHARGE INSTRUCTIONS W/PATIENT WHO VERBALIZED UNDERSTANDING, RX FAXED TO PHARMACY OF CHOICE, PT DISCHARGED @ 6303 IN PRIVATE VEHICLE.
== END 2024-09-29 14:04 | disposition home or self-care (01) | DRG 871 ==
LOC: ER 17:36 → PCU 21:46 → ERHOLD 21:46 → MEDS 21:46 → PCU 09-27 08:21 → MEDS 09-28 21:56
PROVIDERS: Emergency Medicine; Student in an Organized Health Care Education/Training Program; ADMIT Internal Medicine
DX: A41.9 Sepsis, unspecified organism (principal); K75.0 Abscess of liver; C78.7 Secondary malignant neoplasm of liver and intrahepatic bile duct; E87.20 Acidosis, unspecified; C34.90 Malignant neoplasm of unspecified part of unspecified bronchus or lung; I47.19 Other supraventricular tachycardia; R65.20 Severe sepsis without septic shock; L73.9 Follicular disorder, unspecified; K21.9 Gastro-esophageal reflux disease without esophagitis; Z79.1 Long term (current) use of non-steroidal anti-inflammatories (NSAID); Z79.899 Other long term (current) drug therapy
CPT/HCPCS: 36415; 71046; 74177; 80053; 80202; 81001; 83605; 83690; 85025; 87070; 87075; 87086; 87205; 87637; 93971; 94762; 96374; 96375; 99285-25; A9270; J0696; J1171; J1650; J1885; J2405; J2543; J3373; J3480; J7030; J7040; J7050; Q9967

== ENCOUNTER 2024-10-12 07:21 | Day surgery (SDC) | payer BC ==
[~2024-10-12] VITALS: Ht 162.6 cm; Wt 67.1 kg
[2024-10-12] VITALS (8 sets, daily range): BP systolic 119–140; BP diastolic 77–117
[~2024-10-12 07:21] MED LIST changes: +Abraxane100 MG IV; +CANNABIS; +CIPR500 PO; +Carboplati10 MG/1 ML; +DEXA4 PO; +FentaNYL Citrate 50 MCG/ML 2 ML Injection ONE; +KEYTRUDA100 MG/41 IV; +ONDA4 PO; +Rocuronium Bromide 10 MG/ML 5ML Injection IV ONE
[2024-10-12] MEDS ORDERED: CeFAZolin Sodium 2,000 MG in NS 100 ML IV SCH (07:30)
[2024-10-12] MEDS ORDERED: Dexamethasone Sod Phos 10 MG/ML 1ML VIAL ONE (07:41)
[2024-10-12] MEDS ORDERED: Ondansetron HCl 2 MG / ML 2ML Vial ONE (07:41)
[2024-10-12] MEDS ORDERED: Cipro500 MG PO (07:49)
[2024-10-12] MEDS ORDERED: POLYETHYLENE G500 G1 PO (07:49)
--- NOTE | 2024-10-12 07:50 | NUR ---
PATIENT STATES HE HAS A DRAIN TO LIVER. DRAIN BAG IS LESS THAN 25% FULL OF CLEAR, YELLOW DRAINAGE.
--- NOTE | 2024-10-12 07:51 | NUR ---
ACCOMPANIED BY SIGNIFICANT OTHER, SHILPA, IN DAY SURGERY. SHILPA TO DRIVE HOME POST-OP.
[2024-10-12] MEDS ORDERED: CeFAZolin Sodium 2,000 MG VIAL ONE (07:55)
[2024-10-12] MEDS ORDERED: Bupivacaine 0.5% HCl 5 MG/ML 30MLVIAL ONE (08:36)
[2024-10-12] MEDS ORDERED: Albuterol 2.5 MG/3 ML VIAL INH PRN (09:25)
[2024-10-12] MEDS ORDERED: HYDROmorphone HCl/Pf 1MG SYR IV PRN ×2 (09:25)
[2024-10-12] MEDS ORDERED: Metoclopramide HCl 5MG / ML 2ML Vial IV PRN (09:25)
[2024-10-12] MEDS ORDERED: FentaNYL Citrate 50 MCG/ML 2 ML Injection IV PRN ×2 (09:25)
[2024-10-12] MEDS ORDERED: HYDROcodone 5-APAP 325 TAB PO PRN (10:05)
--- NOTE | 2024-10-12 10:11 | NUR ---
PROCESS IMPROVEMENT ENGINEER, VERITO HENLEY, CONFIRMS POST-OP CHEST XRAY OF MEDIPORT PLACEMENT OK PER RADIOLOGY. PATIENT DENIES PAIN. FOLED 2X2 GAUZE DRSG X1 TO RIGHT CHEST AND X1 TO RIGHT NECK. OCCLUSIVE CLEAR DRSG OVER GAUZE. NO NOTED DRAINAGE, BRUISING OR SWELLING. PATIENT HAS NO C/O. RESTING QUIETLY IN GURNEY.
--- NOTE | 2024-10-12 10:26 | NUR ---
Discharge instructions reviewed with patient. Patient verbalizes understanding. Copy given to patient to take home. Patient tolerated PO fluids. at bedside to review discharge instructions with patient.
--- NOTE | 2024-10-12 10:36 | NUR ---
UP TO DRESS WITH STEADY GAIT. NO C/O VERBALIZED. VSS.
== END 2024-10-12 10:38 | disposition home or self-care (01) ==
LOC: ORSCMMR 07:21 → ORD 08:30 → ORSCMMR 08:30 → ORD 09:45 → ORSCMMR 10:38 → ORD 10-14 08:00
PROVIDERS: Surgery
PROC: 0JH60WZ Insertion of Totally Implantable Vascular Access Device into Chest Subcutaneous Tissue and Fascia, Open Approach (ICD-10-PCS; principal; 2024-10-12 08:30)
DX: C34.11 Malignant neoplasm of upper lobe, right bronchus or lung (principal); K21.9 Gastro-esophageal reflux disease without esophagitis; R65.10 Systemic inflammatory response syndrome (SIRS) of non-infectious origin without acute organ dysfunction; F41.9 Anxiety disorder, unspecified; F32.A Depression, unspecified; Z79.899 Other long term (current) drug therapy; Z87.891 Personal history of nicotine dependence
CPT/HCPCS: 77001; C1788; J0690; J1100; J1642; J2405; J2704; J3010; J7120

== ENCOUNTER 2024-12-28 03:58 | Inpatient (IN) | payer BC, OTHER ==
[~2024-12-28] VITALS: Ht 167.6 cm; Wt 68.0 kg
[~2024-12-28 03:58] MED LIST changes: +Cipro500 MG PO; -FentaNYL Citrate 50 MCG/ML 2 ML Injection ONE; +POLYETHYLENE G500 G1 PO; -Rocuronium Bromide 10 MG/ML 5ML Injection IV ONE
[2024-12-28] MEDS ORDERED: NS 1,000 ML IV SCH ×3 (04:30→11:20)
[2024-12-28] MEDS ORDERED: Piperacillin/Tazobactam Sod 4.5 GM in NS 100 ML IV ONE (04:30)
[2024-12-28 05:11] LABS: BASOPHILS ABSOLUTE AUTO 0.09 K/mm3 (0.00-0.23); BASOPHILS PERCENT AUTO 1 % (0-2); EOSINOPHILS ABSOLUTE AUTO 0.09 K/mm3 (0.00-0.68); EOSINOPHILS PERCENT AUTO 1 % (0-6); Hematocrit 39.2 % (37.0-53.0); Hemoglobin 13.6 g/dL (13.5-17.5); IMMATURE GRAN ABSOLUTE AUTO 0.33 K/mm3 (0.00-0.10); IMMATURE GRAN PERCENT AUTO 2 % (0-1); LYMPHOCYTES ABSOLUTE AUTO 1.02 K/mm3 (0.84-5.20); LYMPHOCYTES PERCENT AUTO 6 % (21-46); MONOCYTES ABSOLUTE AUTO 1.89 K/mm3 (0.16-1.47); MONOCYTES PERCENT AUTO 12 % (4-13); Mean Corpuscular HGB Conc 34.7 g/dL (31.5-36.5); Mean Corpuscular Volume 91 fL (80-100); NEUTROPHILS ABSOLUTE AUTO 12.69 K/mm3 (1.96-9.15); NEUTROPHILS PERCENT AUTO 79 % (41-73); NRBC ABSOLUTE 0.00 K/mm3 (0.00-0.02); NRBC Auto 0.0 /100 WBC (0.0-0.2); Platelet Count 211 K/mm3 (150-400); RDW Coefficient Variation 14.6 % (11.7-14.2); RDW Standard Deviation 48.9 fL (35.1-46.3)
[2024-12-28] MEDS ORDERED: Morphine Sulfate 4 MG/1 ML Injection IV ONE (05:20)
[2024-12-28 05:29] LABS: Alanine Aminotransfer (ALT/SGP 49.0 U/L (12-78); Albumin, Blood 3.7 g/dL (3.4-5.0); Albumin/Globulin Ratio 1.1 (0.8-1.8); Anion Gap 9.0 mmol/L (3-11); Aspartate Aminotrans (AST/SGOT 58.0 U/L (12-37); Bilirubin, Total 0.6 mg/dL (0.1-1.0); Blood Urea Nitrogen 15.0 mg/dL (8-24); CO2, Blood 27.0 mmol/L (21-32); Calcium, Blood 8.9 mg/dL (8.5-10.1); Chloride, Blood 101.0 mmol/L (98-108); Creatinine, Blood 0.76 mg/dL (0.60-1.20); Globulin, Blood 3.3 g/dL (2.2-4.0); Glucose, Blood 127.0 mg/dL (70-99); Potassium, Blood 3.7 mmol/L (3.5-5.5); Sodium, Blood 133.0 mmol/L (136-145); Total Protein, Blood 7.0 g/dL (6.4-8.2)
[2024-12-28] MEDS ORDERED: METPRE4DP PO (05:35)
[2024-12-28] MEDS ORDERED: ELIQUIS5 M3 PO (05:35)
[2024-12-28 06:20] LABS: Influenza A, PCR NEGATIVE (NEGATIVE); Influenza B, PCR NEGATIVE (NEGATIVE); Resp Syncytial Virus, PCR NEGATIVE (NEGATIVE); SARS-Cov-2 (COVID-19) PCR, MMC NEGATIVE (NEGATIVE)
[2024-12-28] MEDS ORDERED: HYDROmorphone HCl/Pf 1MG SYR IV PRN (06:40)
[2024-12-28] MEDS ORDERED: Ondansetron HCl 2 MG / ML 2ML Vial IV PRN (06:40)
[2024-12-28] MEDS ORDERED: FentaNYL Citrate 50 MCG/ML 2 ML Injection IV PRN (06:40)
[2024-12-28] MEDS ORDERED: FLU VACC TS2025-26(6MOS UP)/PF 45 MCG/0.5 ML SYRINGE IM SCH (06:40)
[2024-12-28 06:44] LABS: Source, Urine Voided
[2024-12-28 06:51] LABS: Bilirubin, Urine Neg (Neg); Glucose Qualitative, Urine Neg (Neg); Ketones, Urine Neg (Neg); Leukocyte Esterase, Urine Neg (Neg); Protein, Urine 1+ (Neg); Specific Gravity, Urine 1.010 (1.003-1.022); Urobilinogen, Urine NORM (Normal)
[2024-12-28 07:04] LABS: Color, Urine Pale Yellow (P-Yellow)
[2024-12-28 07:04] LABS: Prothrombin Time Results 11.7 Sec (9.7-11.5)
[2024-12-28 07:25] LABS: Anti-Xa UFH, PHA Monitoring 0.52 IU/mL
[2024-12-28 08:29] VITALS: BP 127/71
[2024-12-28] MEDS ORDERED: Heparin Sodium,Porcine/0.5 NS 500 ML IV SCH (09:00)
[2024-12-28] MEDS ORDERED: LIDOCAINE/PRILOCAINE TOP (10:39)
[2024-12-28 11:07] VITALS: BP 115/70
[2024-12-28] MEDS ORDERED: Cefepime HCl 1,000 MG in NS 100 ML IV SCH (12:00)
--- NOTE | 2024-12-28 13:21 | NUR ---
NOTE SPOKE WITH DR AHMADI, INFORMED WE ARE UNABLE TO GET IV ACCESS AND HEPARIN IS RUNNING INTO MEDIPORT. ATTEMPTED POWERGLIDE TWICE WITHOUT COMPLETION.
--- NOTE | 2024-12-28 15:14 | NUR ---
ROUNDED ON PATIENT. DISCUSSED CURRENT DIAGNOSIS AND PROGNOSIS. PATIENT IS CONCERNED ABOUT PAYING HIS BILLS. HE IS WORRIED ABOUT THE PROSPECT OF LOSING HIS HOME. PROVIDED INFORMATION ON UTILITY ASSISTANCE. REQUESTED SCREEN FOR OHP. AND RECOMENDED THAT HE DISCUSS WITH THE [facility] FOR SOME FINANCIAL ASSISTANCE.
[2024-12-28] MEDS ORDERED: Dose Adjust by Pharmacy XX STA (16:08)
[2024-12-28 16:58] VITALS: BP 141/87
--- NOTE | 2024-12-28 18:02 | NUR ---
END OF SHIFT NOTE PATIENT RESTING IN BED, IND TO BATHROOM WITH MINIMAL STANDBY ASSISTANCE WITH IV LINES AND CORDS. ABLE TO MAKE NEEDS KNOWN. A&O4, FAMILY AT BEDSIDE TODAY. DR AHMADI AWARE OF PATIENT CONDITION. IV PLACED RIGHT FOREARM, MEDIPORT INFUSING TO ORDER. HEPARIN DRIP INFUSING TO ORDER. ABDOMINAL LIVER ABCESS DRAIN IN PLACE, DRESSING CHANGED, C/D/I. DISCUSSED PAIN MANAGMENT. NO OTHER CONCERNS FOR THIS SHIFT.
[2024-12-28 23:27] VITALS: BP 121/67
[2024-12-29] VITALS (7 sets, daily range): BP systolic 92–119; BP diastolic 64–77
[2024-12-29] MEDS ORDERED: Dose Adjust by Pharmacy XX STA ×3 (00:24→16:25)
[2024-12-29] MEDS ORDERED: Heparin Sodium 5000 Units/ML 1ML MDV IV ONE (00:25)
--- NOTE | 2024-12-29 03:18 | NUR ---
WEATHER FORCASTER SUMMARY TEMP ELEVATED, OTHERWISE VSS. FEVER TRENDING DOWN (SEE DOC - WAS 103.2 PRIOR TO SHIFT START, LAST TEMP AT OO28 WAS 100.6.). RECEIVING IV ANTIBIOTICS AND IV HEPARIN. TOLERATING PO "WATER" IN LARGE AMTS. A/O X 4. MED [employer] ST AT 108. MEDIPORT IN USE, TOLERATING DIET WITHOUT REPORTED N/V. DRAIN OF ABD ABSCESS DRAINING TO GRAVITY. SEE MAR FOR WHEN ANALGESICS ADMIN. HAS BEEN RESTING QUIETLY AT INTERVALS. UP AD RUY. ABLE TO REPOSITION SELF IN BED WITHOUT ASSIST. CALL LIGHT IN REACH, RAILS UP X 2 AND BED IN LOW POSITION FOR SAFETY.
[2024-12-29 08:47] LABS: BASOPHILS ABSOLUTE AUTO 0.08 K/mm3 (0.00-0.23); BASOPHILS PERCENT AUTO 1 % (0-2); EOSINOPHILS ABSOLUTE AUTO 0.17 K/mm3 (0.00-0.68); EOSINOPHILS PERCENT AUTO 2 % (0-6); Hematocrit 35.4 % (37.0-53.0); Hemoglobin 12.4 g/dL (13.5-17.5); IMMATURE GRAN ABSOLUTE AUTO 0.28 K/mm3 (0.00-0.10); IMMATURE GRAN PERCENT AUTO 2 % (0-1); LYMPHOCYTES ABSOLUTE AUTO 1.52 K/mm3 (0.84-5.20); LYMPHOCYTES PERCENT AUTO 13 % (21-46); MONOCYTES ABSOLUTE AUTO 1.33 K/mm3 (0.16-1.47); MONOCYTES PERCENT AUTO 12 % (4-13); Mean Corpuscular HGB Conc 35.0 g/dL (31.5-36.5); Mean Corpuscular Volume 92 fL (80-100); NEUTROPHILS ABSOLUTE AUTO 8.09 K/mm3 (1.96-9.15); NEUTROPHILS PERCENT AUTO 71 % (41-73); NRBC ABSOLUTE 0.00 K/mm3 (0.00-0.02); NRBC Auto 0.0 /100 WBC (0.0-0.2); Platelet Count 157 K/mm3 (150-400); RDW Coefficient Variation 14.7 % (11.7-14.2); RDW Standard Deviation 49.6 fL (35.1-46.3)
[2024-12-29 09:39] LABS: Alanine Aminotransfer (ALT/SGP 38.0 U/L (12-78); Albumin, Blood 2.9 g/dL (3.4-5.0); Albumin/Globulin Ratio 0.9 (0.8-1.8); Anion Gap 9.0 mmol/L (3-11); Aspartate Aminotrans (AST/SGOT 53.0 U/L (12-37); Bilirubin, Total 0.7 mg/dL (0.1-1.0); Blood Urea Nitrogen 9.0 mg/dL (8-24); CO2, Blood 28.0 mmol/L (21-32); Calcium, Blood 8.3 mg/dL (8.5-10.1); Chloride, Blood 103.0 mmol/L (98-108); Creatinine, Blood 0.71 mg/dL (0.60-1.20); Globulin, Blood 3.1 g/dL (2.2-4.0); Glucose, Blood 112.0 mg/dL (70-99); Potassium, Blood 3.4 mmol/L (3.5-5.5); Sodium, Blood 137.0 mmol/L (136-145); Total Protein, Blood 6.0 g/dL (6.4-8.2)
[2024-12-29] MEDS ORDERED: Magnesium Hydroxide Conc 10 ML UDC PO PRN (11:45)
--- NOTE | 2024-12-29 18:22 | NUR ---
PATIENT A/OX4, UP WITH SBA TO HELP MANAGE LINES. VSS, ON RA. AFEBRILE THIS SHIFT. HEPATIC DRAIN CLAMPED THIS AM PER DR AHMADI AND PATIENT DENIES ANY INCREASED PAIN WITH THIS. DILAUDID AND FENTANYL USED TO TREAT ABDOMINAL PAIN. BOWEL CARE STARTED THIS SHIFT, LAST BM 2 DAYS AGO. HEPARIN DRIP INFUSING AT 23 UNITS/KG/HR AND WILL BE DC'D THIS EVENING WHEN ELIQUIS STARTS. IV FLUIDS DC'D AND PATIENT IS EATING AND DRINKING WELL. NO NEW CONCERNS THIS SHIFT.
[2024-12-30] VITALS (7 sets, daily range): BP systolic 108–140; BP diastolic 70–96
[2024-12-30 05:32] LABS: BASOPHILS ABSOLUTE AUTO 0.07 K/mm3 (0.00-0.23); BASOPHILS PERCENT AUTO 1 % (0-2); EOSINOPHILS ABSOLUTE AUTO 0.36 K/mm3 (0.00-0.68); EOSINOPHILS PERCENT AUTO 5 % (0-6); Hematocrit 34.5 % (37.0-53.0); Hemoglobin 12.0 g/dL (13.5-17.5); IMMATURE GRAN ABSOLUTE AUTO 0.29 K/mm3 (0.00-0.10); IMMATURE GRAN PERCENT AUTO 4 % (0-1); LYMPHOCYTES ABSOLUTE AUTO 1.38 K/mm3 (0.84-5.20); LYMPHOCYTES PERCENT AUTO 20 % (21-46); MONOCYTES ABSOLUTE AUTO 1.22 K/mm3 (0.16-1.47); MONOCYTES PERCENT AUTO 17 % (4-13); Mean Corpuscular HGB Conc 34.8 g/dL (31.5-36.5); Mean Corpuscular Volume 91 fL (80-100); NEUTROPHILS ABSOLUTE AUTO 3.71 K/mm3 (1.96-9.15); NEUTROPHILS PERCENT AUTO 53 % (41-73); NRBC ABSOLUTE 0.00 K/mm3 (0.00-0.02); NRBC Auto 0.0 /100 WBC (0.0-0.2); Platelet Count 132 K/mm3 (150-400); RDW Coefficient Variation 14.4 % (11.7-14.2); RDW Standard Deviation 48.8 fL (35.1-46.3)
[2024-12-30 05:52] LABS: Alanine Aminotransfer (ALT/SGP 44.0 U/L (12-78); Albumin, Blood 2.8 g/dL (3.4-5.0); Albumin/Globulin Ratio 0.8 (0.8-1.8); Anion Gap 10.0 mmol/L (3-11); Aspartate Aminotrans (AST/SGOT 56.0 U/L (12-37); Bilirubin, Total 0.5 mg/dL (0.1-1.0); Blood Urea Nitrogen 10.0 mg/dL (8-24); CO2, Blood 27.0 mmol/L (21-32); Calcium, Blood 8.3 mg/dL (8.5-10.1); Chloride, Blood 104.0 mmol/L (98-108); Creatinine, Blood 0.65 mg/dL (0.60-1.20); Globulin, Blood 3.5 g/dL (2.2-4.0); Glucose, Blood 97.0 mg/dL (70-99); Potassium, Blood 3.6 mmol/L (3.5-5.5); Sodium, Blood 137.0 mmol/L (136-145); Total Protein, Blood 6.3 g/dL (6.4-8.2)
[2024-12-30] MEDS ORDERED: Ondansetron Odt8 MG MM (11:11)
--- NOTE | 2024-12-30 15:57 | NUR ---
DISCUSSED CASE WITH BSRN. CONCERN EXPRESSED FOR LONG ACTING ORAL MEDICATION AND THE PATIENT NOT RECIEVING ENOUGH COVERAGE. CALLED PHARMACY FOR RECOMENDATION ACCORDING TO MEDICATIONS HE HAS BEEN RECIEVING. RECOMENDED 40MG BID OXYCONTIN. DISCUSSED WITH PROVIDER AND ORDERS ADDED.
--- NOTE | 2024-12-30 18:27 | NUR ---
SUMMARY- PT AAOX4. ON RA. SBA TO BATHROOM. ABD PAIN WELL CONTROLLED WITH NEW EMAR PAIN MED CHANGES THIS SHIFT. BILIARY DRAIN STILL CLAMPED THIS SHIFT PER MD ORDERS. NO ACUTE EVENTS THIS SHIFT.
--- NOTE | 2024-12-31 02:29 | NUR ---
ORIENTING NURSE DOCUMENTATION REVIEW: TREATMENTS, MEDICATIONS AND PATIENT CARE PROVIDED TO PATIENT AND DOCUMENTATION ENTERED BY ORIENTING NURSELAURA, OVERSEEN BY THIS RN. TELE STRIP REVIEWED.
[2024-12-31 03:24] VITALS: BP 104/66
--- NOTE | 2024-12-31 04:39 | NUR ---
SHIFT SUMMARY PATIENT IS A&OX4 ALTHOUGH FORGETFUL AND ANXIOUS, INDEPENDENT IN ROOM, ABLE TO MAKE NEEDS KNOWN, HE IS TRYING REALLY HARD TO ONLY USE PO PAIN MEDS SO HE CAN "GO HOME SOONER." HAS SLEPT INTERMITTENTLY T/O SHIFT, NO DISTRESS BESIDES PAIN THAT IS TREATED PER EMAR. BED AT LOWEST LEVEL, BED RAILS UP X2.
[2024-12-31 05:40] LABS: BASOPHILS ABSOLUTE AUTO 0.07 K/mm3 (0.00-0.23); BASOPHILS PERCENT AUTO 1 % (0-2); EOSINOPHILS ABSOLUTE AUTO 0.36 K/mm3 (0.00-0.68); EOSINOPHILS PERCENT AUTO 5 % (0-6); Hematocrit 35.9 % (37.0-53.0); Hemoglobin 12.6 g/dL (13.5-17.5); IMMATURE GRAN ABSOLUTE AUTO 0.18 K/mm3 (0.00-0.10); IMMATURE GRAN PERCENT AUTO 2 % (0-1); LYMPHOCYTES ABSOLUTE AUTO 2.15 K/mm3 (0.84-5.20); LYMPHOCYTES PERCENT AUTO 28 % (21-46); MONOCYTES ABSOLUTE AUTO 1.47 K/mm3 (0.16-1.47); MONOCYTES PERCENT AUTO 19 % (4-13); Mean Corpuscular HGB Conc 35.1 g/dL (31.5-36.5); Mean Corpuscular Volume 90 fL (80-100); NEUTROPHILS ABSOLUTE AUTO 3.58 K/mm3 (1.96-9.15); NEUTROPHILS PERCENT AUTO 46 % (41-73); NRBC ABSOLUTE 0.00 K/mm3 (0.00-0.02); NRBC Auto 0.0 /100 WBC (0.0-0.2); Platelet Count 159 K/mm3 (150-400); RDW Coefficient Variation 14.1 % (11.7-14.2); RDW Standard Deviation 47.0 fL (35.1-46.3)
[2024-12-31 05:59] LABS: Anion Gap 8.0 mmol/L (3-11); Blood Urea Nitrogen 8.0 mg/dL (8-24); CO2, Blood 29.0 mmol/L (21-32); Calcium, Blood 8.7 mg/dL (8.5-10.1); Chloride, Blood 102.0 mmol/L (98-108); Creatinine, Blood 0.75 mg/dL (0.60-1.20); Glucose, Blood 106.0 mg/dL (70-99); Potassium, Blood 3.6 mmol/L (3.5-5.5); Sodium, Blood 135.0 mmol/L (136-145)
[2024-12-31 07:22] VITALS: BP 138/91
[2024-12-31] MEDS ORDERED: Trimethoprim/Sulfamethoxazole DS Tab PO SCH (09:00)
[2024-12-31 11:23] VITALS: BP 152/97
[2024-12-31] MEDS ORDERED: ACET325 PO (12:00)
[2024-12-31] MEDS ORDERED: ELIQUIS5 M2 PO (12:02)
[2024-12-31] MEDS ORDERED: OXYC40ER PO (12:04)
[2024-12-31] MEDS ORDERED: PANT20 PO (12:07)
[2024-12-31] MEDS ORDERED: SULTRIDS PO (12:08)
--- NOTE | 2024-12-31 13:36 | NUR ---
SHIFT/DISCHARGE SUMMARY: PATIENT MEDICATED c SCHEDULED/PRN FOR ABDOMINAL PAIN PER EMAR c GOOD EFFECT. PATIENT HAS HEPATIC/BILARY DRAIN TO R ABDOMEN CLAMPED PER ORDER. PATIENT RECEIVED SCHEDULED MEDS PER EMAR. PATIENT HAS GOOD APPETITE, CONTINENT OF BAB, AMBULATES TO BATHROOM INDEPENDENTLY. PATIENT HAS HAD NO EVENTS ON TELE, SR HR IN THE 90'S BPM. PATIENT A/OX4, PLEASANT AND COOPERATIVE c CARE, CALLS APPROPRIATELY AND MAKE NEEDS KNOWN. PATIENT DENIES CP/PRESSURE, SOB, N/V AND DIZZINESS. PATIENT HAS HAD NO COMPLAINTS, OR DENIES NEW CONCERNED THIS SHIFT. PIV DC'D. MEDIPORT TO CHEST DEACCESS c HEPARIN PER PROTOCOL, TOLERATING WELL. PATIENT DISCHARGE HOME c HEPATIC/BILARY DRAIN PER ORDER AND HE NEEDS TO F/U c DR. WOODALL (IR). DISCHARGE INSTRUCTIONS PACKET AND HARD SCRIPTS OF OXYCODONE GIVEN TO PATIENT. PATIENT EDUCATED ON ADMITITNG DX'S OF SEPSIS-METASTATIC CANCER, [place], NEW RX AND TO F/U c PCP AND IR. PATIENT VERBALIZED UNDERSTANDING c NO FURTHER QUESTIONS. RX WAS FAXED TO PATIENT PREFERRED [facility]. ALL PERSONAL BELONGINGS WERE SENT c PATIENT. PATIENT LEFT THE ROOM AT 1302, TRANSPORTED VIA W/C TO PATIENT ENTRANCE, HIS RIDES AWAITING FOR HIM.
== END 2024-12-31 13:00 | disposition home or self-care (01) | DRG 871 ==
LOC: ER 03:58 → MEDS 06:31 → ENPENDDIS 12-31 10:09 → MEDS 12-31 13:00
PROVIDERS: Emergency Medicine; Student in an Organized Health Care Education/Training Program; ADMIT Internal Medicine
DX: A41.9 Sepsis, unspecified organism (principal); I26.99 Other pulmonary embolism without acute cor pulmonale; K26.5 Chronic or unspecified duodenal ulcer with perforation; E87.21 Acute metabolic acidosis; C34.90 Malignant neoplasm of unspecified part of unspecified bronchus or lung; C77.9 Secondary and unspecified malignant neoplasm of lymph node, unspecified; C78.7 Secondary malignant neoplasm of liver and intrahepatic bile duct; R65.20 Severe sepsis without septic shock; Z66 Do not resuscitate; F17.210 Nicotine dependence, cigarettes, uncomplicated; K21.9 Gastro-esophageal reflux disease without esophagitis
CPT/HCPCS: 36415; 71260; 74177; 80048; 80053; 82947; 83605; 83690; 83880; 84484; 85025; 85520; 85610; 85730; 87040; 87637; 93005; 93010; 93306; 96365-59; 96375-59; 99285-25; A9270; J0692; J1171; J1642; J1644; J2270; J2405; J2470; J2543; J3010; J3373; J7030; J7050; Q9967